=== PATIENT | female | born 1935 | race Caucasian/White ===

== ENCOUNTER → 2016-11-13 | Outpatient (CLI) | payer OTHER ==
[~2016-11-13] MED LIST: ACCUPRIL PO; ACETAMINOPHEN325 M1 PO; ALDACTONE25 MG PO; AMIODARONE PO; ATIVAN0.5 MG PO; BENADRYL25 MG PO; BIOTIN1 MG; BYSTOLIC 5 MG5 M1 PO; CALCIUM OYSTER500 MG; CHLORTHALIDONE25 MG PO; CRESTOR40 MG PO; DERMOLATE ANTI-I2 GM TP; DILTIAZEM ER120 M1 PO; FENTANYL PA12 MCG/H1 TP; FERREX 150150 MG PO; FISHOIL PO; FUROSEMIDE 40 M40 M1 PO; HCTZ PO; HYDROCHLOROTHIA25 M1 PO; HYDROCODON-ACE1 EAC5 PO; HYDROCODON-ACE1 EAC7 PO; IRBESARTAN300 MG PO; LASIX 20 MG TAB20 MG PO; LOW DOSE ASPIRI81 M1 PO; MULTIVITAMINS; NEURONTIN 300300 M1 PO; NORCO 10-325 T1 EAC1 PO; NORCO 10-325 T1 EACH PO; NYSTATIN1 EAC9 TOP; PERCOCET PO; PRAVACHOL40 M1 PO; PRAVASTATIN SOD40 MG PO; PREDNISONE 20 M20 M1 PO; PREDNISONE 5 MG5 MG PO; PREVACID; PRILOSEC 20 MG20 MG PO; PROTONIX40 MG PO; REQUIP0.5 MG PO; SENOKOT-S1 TA1 PO; SPIRONOLACTONE25 M1 PO; TIAZAC120 MG PO; TOPROL XL100 MG PO; TOPROL XL50 MG PO; UNK CHOLESTEROL MED; VITAMIN D1000 UNI1 PO; VITAMIN D400 UNI1 PO; ZETIA10 MG PO; [UNRECOGNIZED DRUG - REMARK]
== END ==
LOC: RAD 10-09 01:18
DX: Z12.31 Encounter for screening mammogram for malignant neoplasm of breast (principal)

== ENCOUNTER → 2017-11-14 | Outpatient (CLI) | payer OTHER | LOC: RAD 01:17 | DX: Z12.31 Encounter for screening mammogram for malignant neoplasm of breast (principal) ==

== ENCOUNTER 2019-02-19 01:20 | Emergency (ER) | payer OTHER ==
[~2019-02-19] VITALS: Ht 162.6 cm; Wt 72.6 kg
[2019-02-19 02:34] LABS: ABSOLUTE NEUTROPHILS 4.1 thou/uL (1.4-8.2); BASOPHILS 1.2 % (0.0-2.0); HEMATOCRIT 30.2 % (37.0-47.0); LYMPHOCYTES 17.6 % (24.0-44.0); MCH 28.9 pg (26.0-34.0); MCV 87.7 fL (80.0-100.0); MONOCYTES 9.9 % (1.0-8.0); PLATELET COUNT 220 thou/uL (150-400); POLYS 67.3 % (36.0-66.0); RBC 3.45 mil/uL (4.20-5.00); RDW 13.7 % (10.5-14.5); WBC 6.1 thou/uL (4.0-11.0)
[2019-02-19 02:43] LABS: ANION GAP 12 mmol/L (7-16); BUN 36 mg/dL (7-18); CALCIUM 9.2 mg/dL (8.5-10.1); CHLORIDE 103 mmol/L (98-107); CO2 23 mmol/L (21-32); CREATININE 1.5 mg/dL (0.6-1.0); GLUCOSE 117 mg/dL (74-106); POTASSIUM 4.5 mmol/L (3.5-5.1); SODIUM 138 mmol/L (136-145)
[2019-02-19 02:53] LABS: ALBUMIN 3.3 g/dL (3.4-5.0); MAGNESIUM 1.6 mg/dL (1.8-2.4); SGOT 18 U/L (15-37); SGPT 13 U/L (30-65); TOTAL BILIRUBIN 0.3 mg/dL (<0.1-1.0); TOTAL PROTEIN 6.6 g/dL (6.4-8.2); TROPONIN-I <0.06 ng/mL (<0.06)
[2019-02-19] MEDS ORDERED: CLONIDINE0.1 PO (03:14)
[2019-02-19 03:21] VITALS: BP 151/91
--- NOTE | 2019-02-19 08:39 | EKG ---
[place] [address] [facility] [place] [address] ELECTROCARDIOGRAM REPORT Name: JUDYANTONI B [facility]: [id number] Admission: 02/19/19 Attend Phys: Discharge: 02/19/19 Date of : 33 Report #: [id number] THIS REPORT FOR: //name// [facility] ED Test Date: 2019-02-19 Test Time: 01:28:38 Pat Name: ANTONI KIM Department: Room: Gender: F Outsole Leveler: FRANCESCO : 1935 Requested By: Christoph Winters Order Number: [id number] MD: Leander Quintanilla Measurements Intervals [place] Rate: 69 P: -27 WA: 185 QRS: -42 QRSD: 96 T: 22 QT: 392 QTc: 420 Interpretive Statements Sinus rhythm Consider left atrial enlargement Abnormal R-wave progression, late transition Inferior infarct, old Compared to ECG 05/17/2015 08:56:28 Electronically Signed On 02-19-2019 8:39:35 CDT by Leander Quintanilla [email or web address] <ELECTRONICALLY SIGNED> By: Leander Quintanilla MD 02/19/19 0839 0128 Leander Quintanilla MD /CARRIE
== END 2019-02-19 03:40 | disposition home or self-care (01) ==
LOC: ER 01:20
PROVIDERS: Emergency Medicine
DX: I10 Essential (primary) hypertension (principal); E78.00 Pure hypercholesterolemia, unspecified; Z90.710 Acquired absence of both cervix and uterus; Z88.8 Allergy status to other drugs, medicaments and biological substances; Z96.651 Presence of right artificial knee joint; Z85.3 Personal history of malignant neoplasm of breast

== ENCOUNTER 2019-08-02 20:37 | Emergency (ER) | payer OTHER ==
[~2019-08-02] VITALS: Ht 149.9 cm; Wt 69.0 kg
[~2019-08-02 20:37] MED LIST changes: +CLONIDINE0.1 PO
[2019-08-02 21:59] LABS: ANION GAP 8 mmol/L (7-16); BUN 46 mg/dL (7-18); CALCIUM 8.9 mg/dL (8.5-10.1); CHLORIDE 98 mmol/L (98-107); CO2 29 mmol/L (21-32); CREATININE 1.7 mg/dL (0.6-1.0); GLUCOSE 121 mg/dL (74-106); POTASSIUM 4.2 mmol/L (3.5-5.1); SODIUM 135 mmol/L (136-145)
[2019-08-02 22:08] LABS: MAGNESIUM 1.4 mg/dL (1.8-2.4); TROPONIN-I <0.06 ng/mL (<0.06)
[2019-08-02 22:13] LABS: ABSOLUTE NEUTROPHILS 6.7 thou/uL (1.4-8.2); BASOPHILS 0.6 % (0.0-2.0); EOSINOPHILS 1.8 % (0.0-3.0); HEMATOCRIT 33.3 % (37.0-47.0); HEMOGLOBIN 10.6 gm/dL (12.0-15.0); LYMPHOCYTES 10.5 % (24.0-44.0); MCH 28.3 pg (26.0-34.0); MCHC 31.8 g/dL (28.0-37.0); MONOCYTES 8.1 % (1.0-8.0); PLATELET COUNT 260 thou/uL (150-400); RBC 3.75 mil/uL (4.20-5.00); RDW 13.8 % (10.5-14.5); WBC 8.5 thou/uL (4.0-11.0)
[2019-08-02 23:13] VITALS: BP 148/41
--- NOTE | 2019-08-05 12:33 | EKG ---
[facility] [place] [address] ELECTROCARDIOGRAM REPORT Name: ANTONI KIM Room #: DEP [facility]#: [id number] Admission: 08/02/19 Attend Phys: Discharge: 08/02/19 Date of : 33 Report #: [id number] THIS REPORT FOR: cc: Brian Higgins MD, Kirk D. MD Lundgren, Craig H. 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: [facility] : 1935 Requested By: Arnie Knapp Order Number: [id number] MD: Nick Lopes Measurements Intervals [place] Rate: 75 P: -6 IN: 173 QRS: -37 QRSD: 102 T: 45 QT: 393 QTc: 439 Interpretive Statements Sinus rhythm Left axis deviation Abnormal R-wave progression, late transition Baseline wander in lead(s) V3 Compared to ECG 02/19/2019 01:28:38 No significant change was found Electronically Signed On 08-03-2019 9:38:01 [employer]Y DRUG WORKER by Nick Lopes [email or web address] <ELECTRONICALLY SIGNED> By: Nick Lopes MD, [facility] 08/03/19937 03 03 Nick Lopes MD, [facility] /EPI
== END 2019-08-02 23:13 | disposition home or self-care (01) ==
LOC: ER 20:37
PROVIDERS: Emergency Medicine
DX: I10 Essential (primary) hypertension (principal); E78.00 Pure hypercholesterolemia, unspecified; Z90.710 Acquired absence of both cervix and uterus; Z96.651 Presence of right artificial knee joint; Z88.8 Allergy status to other drugs, medicaments and biological substances

== ENCOUNTER → 2019-09-03 | Outpatient (CLI) | payer OTHER | LOC: SJCVC 13:38 | DX: R94.31 Abnormal electrocardiogram [ECG] [EKG] (principal); I25.810 Atherosclerosis of coronary artery bypass graft(s) without angina pectoris; E78.00 Pure hypercholesterolemia, unspecified; I10 Essential (primary) hypertension; I65.23 Occlusion and stenosis of bilateral carotid arteries; F41.9 Anxiety disorder, unspecified; Z95.1 Presence of aortocoronary bypass graft; Z79.899 Other long term (current) drug therapy ==

== ENCOUNTER 2020-08-11 06:07 | Inpatient (IN) | payer OTHER ==
[~2020-08-11] VITALS: Ht 149.9 cm; Wt 70.4 kg
[2020-08-11 06:14] VITALS: BP 171/68
[2020-08-11] MEDS ORDERED: AVAPRO300 MG PO (06:27)
[2020-08-11] MEDS ORDERED: BYSTOLIC10 MG PO (06:27)
[2020-08-11] MEDS ORDERED: CARDURA XL4 MG PO (06:27)
[2020-08-11] MEDS ORDERED: PRAVASTATIN SOD40 MG PO (06:28)
[2020-08-11] MEDS ORDERED: LORAZEPAM 0.50.5 MG PO (06:28)
[2020-08-11] MEDS ORDERED: PRILOSEC OTC20 MG PO (06:29)
[2020-08-11] MEDS ORDERED: BUMETANIDE 1 MG1 M1 PO (06:30)
[2020-08-11] MEDS ORDERED: ZANAFLEX2 M1 PO (06:30)
[2020-08-11 07:00] LABS: ABSOLUTE NEUTROPHILS 4.3 thou/uL (1.4-8.2); BASOPHILS 1.1 % (0.0-2.0); EOSINOPHILS 3.9 % (0.0-3.0); HEMATOCRIT 31.3 % (37.0-47.0); HEMOGLOBIN 9.9 gm/dL (12.0-15.0); LYMPHOCYTES 15.9 % (24.0-44.0); MCH 29.1 pg (26.0-34.0); MCHC 31.5 g/dL (28.0-37.0); MCV 92.5 fL (80.0-100.0); PLATELET COUNT 230 thou/uL (150-400); POLYS 70.1 % (36.0-66.0); RBC 3.39 mil/uL (4.20-5.00); RDW 13.1 % (10.5-14.5); WBC 6.2 thou/uL (4.0-11.0)
[2020-08-11 07:01] LABS: ANION GAP 12 mmol/L (7-16); BUN 39 mg/dL (7-18); CALCIUM 9.3 mg/dL (8.5-10.1); CHLORIDE 105 mmol/L (98-107); CO2 23 mmol/L (21-32); CREATININE 1.7 mg/dL (0.6-1.0); GLUCOSE 120 mg/dL (74-106); POTASSIUM 4.9 mmol/L (3.5-5.1); SODIUM 140 mmol/L (136-145)
--- NOTE | 2020-08-11 07:09 | EKG ---
[place] [address] [facility] [place] [address] ELECTROCARDIOGRAM REPORT Name: ANTONI KIM [facility]: [facility] [id number] Admission: 08/11/20 Attend Phys: Discharge: Date of : 33 Report #: [id number] 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
[2020-08-11 07:11] LABS: ALBUMIN 3.7 g/dL (3.4-5.0); DIRECT BILIRUBIN < 0.1 mg/dL (<0.1-0.2); SGOT 14 U/L (15-37); SGPT 14 U/L (14-59); TOTAL BILIRUBIN 0.4 mg/dL (0.2-1.0); TOTAL PROTEIN 6.7 g/dL (6.4-8.2); TROPONIN-I <0.06 ng/mL (<0.06)
[2020-08-11 09:54] LABS: FOLIC ACID 16.7 ng/mL (8.6-58.9)
--- NOTE | 2020-08-11 10:23 | 2DMMODE ---
[facility] [place] [address] 2 D/M-MODE ECHOCARDIOGRAM Name: ANTONI KIM Room #: 170-1 ADM IN M.R.#: [id number] Admission: 08/11/20 Attend Phys: Juan Antonio Lima MD Discharge: Date of : 34 Report #: [id number] THIS REPORT FOR: cc: ESSIE FUNG MD, OSSAMA MD Santiago, Patrick MD [facility] ~ APPROVED REPORT Study performed: 08/11/2020 09:20:04 EXAM: Comprehensive 2D, Doppler, and color-flow Echocardiogram Patient Location: ER Status: routine BSA: 1.69 HR: 71 bpm BP: 171/68 mmHg Indications Shortness of breath, CHF. Hx: CABG, Aortic stenosis, HTN, HLP. 2D Dimensions RVDd: 33.74 mm IVSd: 9.30 (7-11mm) LVOT Diam: 18.65 (18-24mm) LVDd: 51.52 mm PWd: 9.30 (7-11mm) Ascending Ao: 34.81 (22-36mm) LVDs: 37.79 (25-40mm) Left Atrium: 48.04 (27-40mm) Aortic Root: 35.01 mm Volumes Left Atrial Volume (Systole) Single Plane 4CH: 70.54 mL Single Plane 2CH: 78.40 mL LA ESV Index: 46.00 mL/m2 Aortic Valve AoV Peak Oracio.: 2.03 m/s AO Peak Gr.: 16.55 mmHg LVOT Max P.17 mmHg AO Mean Gr.: 8.58 mmHg AO V2 Mean: 1.40 m/s LVOT Max V: 1.14 m/s AO V2 VTI: 50.25 cm AUGIE Vmax: 1.53 cm2 [facility] [place] [address] 2 D/M-MODE ECHOCARDIOGRAM Name: ANTONI KIM Room #: [address] [place] [address] [place] .R.#: [id number] Admission: 08/11/20 Attend Phys: Shanel Montero Discharge: Date of : 33 Report #: [id number] Mitral Valve E/A Ratio: 1.2 MV Decel. Time: 122.35 ms MV E Max Oracio.: 1.10 m/s MV A Oracio.: 0.95 m/s MV PHT: 35.48 ms IVRT: 59.98 ms Pulmonary Valve PV Peak Oracio.: 1.15 m/s PV Peak Gr.: 5.32 mmHg Pulmonary Vein P Vein S: 0.66 m/s P Vein A: 0.22 m/s P Vein D: 0.65 m/s P Vein A Dur.: 110.7 msec P Vein S/D Ratio: 1.02 Tricuspid Valve TR Peak Oracio.: 3.25 m/s RAP Estimate: 5.00 mmHg TR Peak Gr.: 42.20 mmHg PA Pressure: 47.00 mmHg Left Ventricle The left ventricle is normal size. There is normal LV segmental wall motion. Moderate basal septal hypertrophy is present. Left ventricular systolic function is normal. LVEF is 60%. Moderate diastolic dysfunction is present (pseudonormal filling). Right Ventricle The right ventricle is normal size. The right ventricular systolic function is normal. Atria Left atrium is moderately dilated. The right atrium size is normal. Aortic Valve Aortic valve is mild to moderately calcified. Trace aortic regurgitation. There is mild valvular aortic stenosis. Calculated aortic valve area is 1.5 cm2 with maximum pressure gradient of 17 mmHg and mean pressure gradient of 9 mmHg. Mitral Valve Mitral valve leaflets are thickened. Moderate mitral annular calcification. Mild to moderate mitral regurgitation. No evidence of mitral valve stenosis. [facility] [address] [place] [address] 2 D/M-MODE ECHOCARDIOGRAM Name: ANTONI KIM Griselda Room #: 170-1 [facility] IN [facility].#: [id number] Admission: 08/11/20 Attend Phys: Shanel Montero Discharge: Date of : 33 Report #: [id number] Tricuspid Valve The tricuspid valve is normal in structure. Moderate tricuspid regurgitation. Estimated PAP is 45-50mmHg. Pulmonic Valve The pulmonary valve is normal in structure. Trace pulmonic regurgitation. Great Vessels The aortic root is normal in size. The ascending aorta is normal in size. IVC is normal in size and collapses >50% with inspiration. Pericardium There is no pericardial effusion. <Conclusion> Normal left ventricular size with moderate basilar hypertrophy Ejection fraction 60% Grade 2 diastolic dysfunction Normal right ventricular size/function Color-flow Doppler study was performed of the aortic/mitral/tricuspid/pulmonary valve Mild aortic valve stenosis aortic valve area estimated 1.5 cm and a mean gradient of 9 mmHg Moderate/central mitral valve insufficiency Moderate mitral annular calcification Moderate tricuspid valve insufficiency, PA pressure systolic estimated 45 mmHg No pericardial effusion <ELECTRONICALLY SIGNED> By: Latrell Goode MD, FACC 08/11/20 1017 1017 Latrell Goode MD, FACC /INF
[2020-08-11 13:23] VITALS: BP 113/41
[2020-08-11 13:34] VITALS: BP 115/44
[2020-08-11 14:40] VITALS: BP 141/69
[2020-08-11] MEDS ORDERED: VITAMIN D3-ALO1 EACH PO (15:39)
[2020-08-11] MEDS ORDERED: HYDROCODON-ACE1 EAC5 PO (15:40)
--- NOTE | 2020-08-11 18:42 | NUR ---
PT. ARRIVED AT FLOOR CLOSE TO 1500; PT. AOX4; NO C/O PAIN; SR ON THE MONITOR; EDUCATED ABOUT FALL PRECAUTIONS; ST. UNDERSTANDING; EDUCATED ABOUT SWIFT INSERTION; REFUSED IT; ST. PREFERS TO GET UP TO THE BATHROOM AND NOT TO STAY ON BED; ALLISON MAYORGA NOTIFIED; C/O PAIN OVER BACK; 01/31; PRN PAIN MEDICATION NOT DUE; PER PT. ST. TAKES BETWEEN 4-6 PRN; DOES NOT TAKE PAIN MEDICATION AT NIGHT; ALLISON ASSEMBLER WET WASH NOTIFIED; ORDERS ON PLACED; PRN PAIN MEDICATION AND SCHEDULED MEDICATION GIVEN; UP TO THE RESTHROOM WITH ASSISTANCE; MED RECONCILIATION PERFORMED WITH DAUGTHER WELL ALLERGIES; EXPLAINED ABOUT VISITOR POLICIES TO PATIENT AND DAUGHTER; VISITOR DESIGNATER DAUGHTER; VS WNL; ASSESSMENT CHARGED; FOLLOWING POC; WILL PASS ON REPORT;
[2020-08-11 19:18] VITALS: BP 172/63
[2020-08-11 23:07] VITALS: BP 149/65
[2020-08-12 04:25] VITALS: BP 156/59
--- NOTE | 2020-08-12 05:20 | NUR ---
SLEPT MOST OF SHIFT. ASSISTED UP TO BATHROOM NEEDED. TRIED FEMALE CATH BUT PATIENT WOULD NOT USE. WORKING ON GOALS AND PLAN OF CARE FOR NOC. WT DOWN. PROGRESSING TOWARDS DISCHARGE GOALS SLOWLY. SHORTNESS OF AIR WITH ACTIVITY AND NOTED WHEEZES AT TIMES. TURNS SELF. CONTINUE TO ASSES.
[2020-08-12 05:35] LABS: ABSOLUTE NEUTROPHILS 2.5 thou/uL (1.4-8.2); EOSINOPHILS 5.7 % (0.0-3.0); HEMATOCRIT 25.8 % (37.0-47.0); HEMOGLOBIN 8.3 gm/dL (12.0-15.0); LYMPHOCYTES 27.2 % (24.0-44.0); MCH 29.4 pg (26.0-34.0); MCHC 32.1 g/dL (28.0-37.0); MCV 91.6 fL (80.0-100.0); MONOCYTES 11.2 % (1.0-8.0); PLATELET COUNT 185 thou/uL (150-400); POLYS 54.9 % (36.0-66.0); RBC 2.82 mil/uL (4.20-5.00); RDW 12.9 % (10.5-14.5); WBC 4.5 thou/uL (4.0-11.0)
[2020-08-12 05:58] LABS: CALCIUM 8.7 mg/dL (8.5-10.1); CREATININE 1.7 mg/dL (0.6-1.0); MAGNESIUM 1.5 mg/dL (1.8-2.4); POTASSIUM 4.7 mmol/L (3.5-5.1)
[2020-08-12] MEDS ORDERED: DEMADEX20 MG PO (08:58)
[2020-08-12] MEDS ORDERED: NORVASC10 MG PO (08:58)
[2020-08-12 09:01] VITALS: BP 143/108
[2020-08-12 11:47] VITALS: BP 122/41
--- NOTE | 2020-08-12 12:04 | NUR ---
Nutrition: Pt admitted with SOB, CHF exacerbation. Seen due to high risk screen for poor intake and weight loss. Pt reports fair appetite but no weight loss, rather fluid gain. Current weight up 16# from usual of 142#. Diuresing. Pt is familiar with Na+ restriction and tries to watch it although did voice several high sodium foods she enjoys. RD provided diet review/materials and offered suggestions/alternatives to her high Na+ favorites. Pt voiced that recently her medications have been changed around with a new physician and that is when she started noticing fluid gain. Cardiology working on medication adjustment. Low nutrition risk.
[2020-08-12 15:45] VITALS: BP 117/52
--- NOTE | 2020-08-12 15:58 | NUR ---
Met with patient who resides in mobile home at [place]. Patient reports she uses a walker for ambulation. Her dtr lives behind her and another dtr a few homes away. Patient resides alone however dtr sleeps in her home at night. She drives her to [employer]. She does cooking, laundry and cleaning. Patient reports dtr often at her home. Discussed home with HH and patient does not feel she needs. Her PCP is Dr Bentley. Her PCP is fairly new she used to see Dr Higgins. Patient reports PCP took her off water pills and she questions if this is reason for CHF exacerbation. Dr Taylor is her patient access. Patient reports she has much assistance at home. Discharge with no needs
--- NOTE | 2020-08-12 17:17 | NUR ---
RECEIVED PT'S CARE AROUND 07; PT. ON BED; RESTING WITH EYES CLOSED; EQUAL CHEST RISING NOTICED; SB ON THE MONITOR; DURING AM ASSESSMENT PT. REQUESTING TO USE THE RESTHROOM; AOX4; NO C/O PAIN; AM MEDICATION GIVEN; NOTIFIED ABOUT INCREASE MG OVER BP MEDICATION; ST. UNDERSTANDING; UP TO THE CHAIR FOR BREAKFAST; EDUCATED ABOUT THE IMPORTANCE OF GETTIN UP TO CHAIR; ST. UNDERSTANDING; PER CARDIOLOGY OK FOR PT. TO BE D/C; DR. [place] NOTIFIED; NO NEW ORDERS; C/O PAIN DURING THE AFTERNOON; PRN PAIN MEDICATION GIVEN; REASSESSMENT PT. RESTING WITH EYES CLOSED; HAD A BM; SB ON THE MONITOR; ASSESSMENT CHARGED; FOLLLOWING POC; WILL PASS ON REPORT;
[2020-08-12 20:03] VITALS: BP 136/51
[2020-08-13 04:19] VITALS: BP 148/40
--- NOTE | 2020-08-13 05:22 | NUR ---
PT RESTING QUIETLY IN ROOM, VSS, UP W/ SBA TO BR, PRN PAIN MED GIVEN FOR C/O CHRONIC BACK PAIN, REMAINS ON RA STATES HER BREATHING SEEMS MUCH EASIER. WILL CON'T TO MONITOR PER PPOC.
[2020-08-13 06:07] LABS: CALCIUM 9.2 mg/dL (8.5-10.1); CREATININE 1.7 mg/dL (0.6-1.0); POTASSIUM 4.3 mmol/L (3.5-5.1)
[2020-08-13 07:16] VITALS: BP 134/101
[2020-08-13 11:11] VITALS: BP 105/78
[2020-08-13] MEDS ORDERED: BYSTOLIC20 MG PO (11:49)
[2020-08-13 12:32] VITALS: BP 105/78
--- NOTE | 2020-08-13 14:36 | NUR ---
ASSUMED CARE OF PT AT SHIFT CHANGE. ASSESSMENT CHARTED. MEDS GIVEN PER AUG. PT A&OX4, C/O PAIN TREATED WITH PO MEDS WITH PARTIAL RELIEF. DISCHARGE ORDERS AND INSTRUCTIONS COMPLETE. IV AND TELE DC'D. PT TAKEN TO ER ENTRANCE VIA WHEELCHAIR TO DAUGHTER WAITING IN CAR.
== END 2020-08-13 14:26 | disposition home or self-care (01) | DRG 291 ==
LOC: ER 06:07 → EROBS 08:32 → 2N 08:32
PROVIDERS: Emergency Medicine; Nurse Practitioner; ADMIT Hospitalist; ATTEND Hospitalist
DX: I13.0 Hypertensive heart and chronic kidney disease with heart failure and stage 1 through stage 4 chronic kidney disease, or unspecified chronic kidney disease (principal); I50.33 Acute on chronic diastolic (congestive) heart failure; N17.9 Acute kidney failure, unspecified; E78.5 Hyperlipidemia, unspecified; F32.9 Major depressive disorder, single episode, unspecified; I25.10 Atherosclerotic heart disease of native coronary artery without angina pectoris; F41.9 Anxiety disorder, unspecified; D64.9 Anemia, unspecified; I35.0 Nonrheumatic aortic (valve) stenosis; N18.9 Chronic kidney disease, unspecified; I27.20 Pulmonary hypertension, unspecified; E78.00 Pure hypercholesterolemia, unspecified; Z96.651 Presence of right artificial knee joint; Z20.822 Contact with and (suspected) exposure to COVID-19; Z95.1 Presence of aortocoronary bypass graft; Z90.710 Acquired absence of both cervix and uterus; Z85.3 Personal history of malignant neoplasm of breast; Z79.899 Other long term (current) drug therapy; Z79.82 Long term (current) use of aspirin; Z88.8 Allergy status to other drugs, medicaments and biological substances
CPT/HCPCS: 10081

== ENCOUNTER → 2020-08-18 | Outpatient (CLI) | payer OTHER ==
[~2020-08-18] MED LIST changes: +AVAPRO300 MG PO; +BUMETANIDE 1 MG1 M1 PO; +BYSTOLIC10 MG PO; +BYSTOLIC20 MG PO; +CARDURA XL4 MG PO; +DEMADEX20 MG PO; +LORAZEPAM 0.50.5 MG PO; +NORVASC10 MG PO; +PRILOSEC OTC20 MG PO; +VITAMIN D3-ALO1 EACH PO; +ZANAFLEX2 M1 PO
== END ==
LOC: SJCVC 10:39
PROVIDERS: ATTEND Internal Medicine Cardiovascular Disease
DX: I35.0 Nonrheumatic aortic (valve) stenosis (principal); I25.810 Atherosclerosis of coronary artery bypass graft(s) without angina pectoris; E78.00 Pure hypercholesterolemia, unspecified; I11.0 Hypertensive heart disease with heart failure; I50.33 Acute on chronic diastolic (congestive) heart failure; Z98.61 Coronary angioplasty status; Z98.890 Other specified postprocedural states; Z79.82 Long term (current) use of aspirin; Z79.899 Other long term (current) drug therapy; Z88.8 Allergy status to other drugs, medicaments and biological substances

== ENCOUNTER 2020-12-06 20:39 | Emergency (ER) | payer OTHER ==
[~2020-12-06] VITALS: Ht 149.9 cm; Wt 65.8 kg
[2020-12-07 00:39] LABS: ABSOLUTE NEUTROPHILS 8.7 thou/uL (1.4-8.2); BASOPHILS 0.8 % (0.0-2.0); EOSINOPHILS 2.6 % (0.0-3.0); HEMATOCRIT 36.9 % (37.0-47.0); HEMOGLOBIN 11.6 gm/dL (12.0-15.0); LYMPHOCYTES 9.9 % (24.0-44.0); MCH 27.4 pg (26.0-34.0); MCHC 31.4 g/dL (28.0-37.0); MCV 87.3 fL (80.0-100.0); MONOCYTES 8.6 % (1.0-8.0); PLATELET COUNT 268 thou/uL (150-400); POLYS 78.1 % (36.0-66.0); RBC 4.23 mil/uL (4.20-5.00); RDW 14.3 % (10.5-14.5); WBC 11.1 thou/uL (4.0-11.0)
[2020-12-07 00:49] LABS: URINE BILIRUBIN NEGATIVE (Negative); URINE BLOOD NEGATIVE (Negative); URINE CLARITY CLEAR; URINE COLOR YELLOW; URINE GLUCOSE-RANDOM* NEGATIVE (Negative); URINE KETONES NEGATIVE (Negative); URINE LEUKOCYTES-REFLEX NEGATIVE (Negative); URINE NITRITE-REFLEX NEGATIVE (Negative); URINE PROTEIN (DIPSTICK) 1+ (Negative); URINE SPECIFIC GRAVITY 1.015 (1.005-1.035); URINE UROBILINOGEN 0.2 E.U./dl (0.2-1.0)
[2020-12-07 00:52] LABS: ANION GAP 10 mmol/L (7-16); BUN 20 mg/dL (7-18); CHLORIDE 105 mmol/L (98-107); CO2 26 mmol/L (21-32); CREATININE 1.2 mg/dL (0.6-1.0); GLUCOSE 110 mg/dL (74-106); POTASSIUM 4.3 mmol/L (3.5-5.1); SODIUM 141 mmol/L (136-145)
[2020-12-07 00:58] LABS: BACTERIA-REFLEX 1-9 Few /HPF (None Seen); CRYSTALS None Seen /LPF (None Seen); HYALINE CASTS 0-3 Few /LPF (None Seen); MUCUS 0-3 Light strn/LPF (None Seen); SQUAMOUS 4-10 Moderate /LPF (0-3); URINE RBC 1-2 Rare /HPF (NONE SEEN); URINE WBC-REFLEX 0-5 Rare /HPF (0-5)
[2020-12-07 01:03] LABS: ALBUMIN 3.7 g/dL (3.4-5.0); DIRECT BILIRUBIN < 0.1 mg/dL (<0.1-0.2); MAGNESIUM 1.8 mg/dL (1.8-2.4); PHOSPHORUS 3.6 mg/dL (2.5-4.9); SGOT 12 U/L (15-37); SGPT 13 U/L (30-65); TOTAL BILIRUBIN 0.4 mg/dL (0.2-1.0); TOTAL PROTEIN 7.2 g/dL (6.4-8.2); TROPONIN-I <0.06 ng/mL (<0.06)
[2020-12-07 02:45] VITALS: BP 130/63
--- NOTE | 2020-12-07 15:36 | EKG ---
[place] [address] [employer] [facility] [address] ELECTROCARDIOGRAM REPORT Name: ANTONI KIM Room [facility]: [facility] [id number] Admission: 12/06/20 Attend Phys: Discharge: 12/07/20 Date of : 33 Report #: [id number] [facility] ED Test Date: 2020-12-06 Test Time: 23:33:20 Pat Name: ANTONI KIM Department: Room: Gender: F Ball Sorter: tammy : 1935 Requested By: Ramone Hwang Order Number: [id number] MD: Latrell Goode Measurements Intervals [place] Rate: 71 P: -11 ME: 179 QRS: -37 QRSD: 98 T: 25 QT: 413 QTc: 449 Interpretive Statements Sinus rhythm Left axis deviation Abnormal R-wave progression, late transition Compared to ECG 08/11/2020 06:15:51 No significant changes Electronically Signed On 12-07-2020 15:36:35 CDT by Latrell Goode [email or web address] <ELECTRONICALLY SIGNED> By: Latrell Goode MD, [facility] 12/07/20 1536 D: 06/2332 32 Latrell Goode MD, FACC /EPI
== END 2020-12-07 02:45 | disposition home or self-care (01) ==
LOC: ER 20:39
PROVIDERS: Emergency Medicine
DX: R07.89 Other chest pain (principal); R60.0 Localized edema; E78.00 Pure hypercholesterolemia, unspecified; I10 Essential (primary) hypertension; I25.10 Atherosclerotic heart disease of native coronary artery without angina pectoris; Z88.6 Allergy status to analgesic agent; Z88.8 Allergy status to other drugs, medicaments and biological substances; Z79.899 Other long term (current) drug therapy; Z79.82 Long term (current) use of aspirin; Z95.1 Presence of aortocoronary bypass graft; Z90.710 Acquired absence of both cervix and uterus; Z85.3 Personal history of malignant neoplasm of breast